=== PATIENT | male | born 1995 ===

== ENCOUNTER 2019-11-19 13:15 | Emergency (ER) | payer SELFPAY ==
[~2019-11-19] VITALS: Ht 170.2 cm; Wt 68.9 kg
--- NOTE | 2019-11-19 13:15 | NUR ---
Patient BIBA BLS, transferred to bed 4. RN evaluating patient at bedside.
[2019-11-19 13:25] VITALS: BP 132/88
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
--- NOTE | 2019-11-19 13:52 | NUR ---
PT UNCOOPERATIVE, COMBATIVE, VERBALLY ABUSIVE, USING WORD SALAD, NOT FOLLOWING COMMANDS. SIDE RAIL X2.
--- NOTE | 2019-11-19 14:03 | NUR ---
ERMD AT BEDSIDE
[2019-11-19] MEDS ORDERED: ZIPRASIDONE MESYLATE 20 MG/ML VIAL IM ONE (14:05)
[2019-11-19] MEDS ORDERED: NACL 0.9% 1,000 ML IV ONE (14:25)
--- NOTE | 2019-11-19 14:40 | NUR ---
PT UNCOOPERATIVE, COMBATIVE, VERBALLY ABUSIVE, USING WORD SALAD, NOT FOLLOWING COMMANDS. SIDE RAIL X2.
[2019-11-19 15:07] LABS: BASOPHILS # (AUTO) 0.1 K/uL (0.00-0.22); BASOPHILS % (AUTO) 1.3 % (0.0-2.0); HEMATOCRIT 40.6 % (36-52); HEMOGLOBIN 12.7 g/dL (12.0-18.0); LYMPHOCYTES # (AUTO) 1.1 K/uL (2.0-11.5); LYMPHOCYTES % (AUTO) 15.1 % (20.5-51.1); MEAN CORPUSCULAR HEMOGLOBIN 22 pg (27-31); MEAN CORPUSCULAR HGB CONC 31 g/dL (33-37); MEAN CORPUSCULAR VOLUME 69.4 fL (80-94); MONOCYTES # (AUTO) 0.8 K/uL (0.8-1.0); MONOCYTES % (AUTO) 11.2 % (1.7-9.3); NEUTROPHILS # (AUTO) 5.1 K/uL (1.8-7.7); NEUTROPHILS % (AUTO) 72.4 % (42.2-75.2); PLATELET COUNT (AUTO) 204 K/uL (140-450); RED BLOOD CELL COUNT(AUTO) 5.85 MIL/uL (4.20-6.10); RED CELL DISTRIBUTION WIDTH 15.6 % (11.6-13.7); WHITE BLOOD COUNT (AUTO) 7.1 K/uL (4.8-10.8)
[2019-11-19 15:25] LABS: ALBUMIN 4.1 g/dL (3.4-5.0); ANION GAP 15.4 (8-16); ASPARTATE AMINOTRANSFERASE 18 U/L (15-37); CARBON DIOXIDE 24.3 mmol/L (21-32); CHLORIDE 106 mmol/L (98-107); CREATININE 1.5 mg/dL (0.6-1.3); GFR ARICAN-AMERICAN 74 mL/min (>90); GLUCOSE 80 mg/dL (74-106); POTASSIUM 3.7 mmol/L (3.5-5.1); SODIUM SERUM 142 mmol/L (136-145); TOTAL BILIRUBIN 1.5 mg/dL (0.0-1.0); UREA NITROGEN, BLOOD 14 mg/dL (7-18)
[2019-11-19 15:28] LABS: SALICYLATE < 2.8 mg/dL (2.8-20.0)
--- NOTE | 2019-11-19 15:47 | NUR ---
300CC URINE COLLECTED VIA STRAIGHT CATH.
--- NOTE | 2019-11-19 15:50 | NUR ---
LAB NOTIFIED OF URINE IN DIRTY UTILITY ROOM
[2019-11-19 16:10] LABS: BARBITURATE, URINE NEGATIVE ng/ml (NEG <=200); BENZODIAZEPINE, URINE NEGATIVE ng/mL (NEG <=200); CANNABINOID, URINE POSITIVE ng/mL (NEG <=50); COCAINE, URINE NEGATIVE ng/mL (NEG <=300); OPIATE, URINE NEGATIVE ng/mL (NEG <=2000); PHENCYCLIDINE SCREEN,URINE NEGATIVE ng/mL (NEG <=25)
--- NOTE | 2019-11-19 16:26 | NUR ---
PT RESTING IN BED, SLEEPING. VSS.
--- NOTE | 2019-11-19 16:44 | NUR ---
Patient taken to CT scan via gurney by [employer].
--- NOTE | 2019-11-19 17:01 | NUR ---
Patient returned from CT scan. RN re-evaluating patient at bedside.
--- NOTE | 2019-11-19 19:08 | NUR ---
REPORT GIVEN TO JONNATHAN CEBALLOS FOR CONTINUITY OF CARE
--- NOTE | 2019-11-19 19:09 | NUR ---
REPORT RECEIVED FROM MICHEAL CEBALLOS
--- NOTE | 2019-11-19 20:15 | NUR ---
PT AWAKE AND COOPERATIVE. ABLE TO GET PATIEN'T'S NAME AND ADDRESS.
[2019-11-19 20:30] VITALS: BP 109/68
--- NOTE | 2019-11-19 20:32 | NUR ---
Patient discharged with v/s stable. Written and verbal after care instructions given and explained. Patient verbalized understanding. Ambulatory with steady gait. All questions addressed prior to discharge. Advised to follow up with PMD.
== END 2019-11-19 20:30 | disposition home or self-care (01) ==
LOC: MED 13:15 → EDBD 13:15 → MED 20:30
DX: R41.82 Altered mental status, unspecified (principal); Z91.041 Radiographic dye allergy status
CPT/HCPCS: 36415; 70450; 80053; 80305; 85025; 96360; 96372; 99284; G0480; G0482; J3486; J7030